=== PATIENT | female | born 1930 | race Two or more races ===

== ENCOUNTER → 2017-11-03 | Outpatient (CLI) | payer MEDICARE ==
--- NOTE | 2017-11-03 11:37 | XR ---
EXAMINATION TYPE: XR lumbosacral spine min 4V DATE OF EXAM: 11/03/2017 COMPARISON: NONE HISTORY: 87-year-old female with chronic low back pain, degenerative disc disease TECHNIQUE: 5 views FINDINGS: Hypertrophic facet arthropathy mid to lower lumbar spine with grade 1 anterolisthesis at L4-L5. Verte bral body heights are preserved. Very mild disc space narrowing throughout the ligament more moderate to severe disc height loss at L5-S1 with vacuum phenomenon. Endplate spondylosis throughout. No pars interarticularis defect seen. IMPRESSION: 1. Hypertrophic facet arthropathy with degenerative grade 1 anterolisthesis at L4-L5. 2. Mild to moderate degenerative disc disease, greatest at L5-S1. 3. No vertebral compression collapse.
== END | disposition home or self-care (01) ==
LOC: RADXRYALE 10:44
PROVIDERS: ATTEND Psychiatry & Neurology Clinical Neurophysiology
DX: M51.37 Other intervertebral disc degeneration, lumbosacral region (principal); M43.16 Spondylolisthesis, lumbar region; M46.86 Other specified inflammatory spondylopathies, lumbar region
CPT/HCPCS: 72110